=== PATIENT | female | born 1995 | race American Indian/Alaskan Native ===

== ENCOUNTER 2020-03-24 23:34 | Outpatient (CLI) | payer MEDICAID ==
[2020-03-25 01:31] VITALS: BP 128/79
== END 2020-03-25 01:49 | disposition home or self-care (01) ==
LOC: TRG 23:34 → APU 23:36 → TRG 03-25 01:49
PROVIDERS: ATTEND Obstetrics & Gynecology
DX: O26.852 Spotting complicating pregnancy, second trimester (principal); Z3A.27 27 weeks gestation of pregnancy
CPT/HCPCS: 59025

== ENCOUNTER 2020-06-11 04:10 | Outpatient (CLI) | payer MEDICAID ==
[2020-06-11 05:18] VITALS: BP 129/73
[2020-06-11] MEDS ORDERED: BICITRA ORAL LIQD 30ML PO NR (08:01)
[2020-06-11] MEDS ORDERED: FAMOTIDINE 20 MG/2 ML INJ IV ONE (08:01)
[2020-06-11] MEDS ORDERED: METOCLOPRAMIDE 10 MG/2 ML INJ IV NR (08:01)
--- NOTE | 2020-06-11 08:05 | History and Physical Report ---
History of Present Illness Date of examination: 06/11/20 Date of admission: 06/11/2020 Chief complaint: I'm here for my History of present illness: Pt is a 24 year old who presents for repeat . Past History - Obstetrical History : 3 Medications and Allergies Allergies Allergy/AdvReac Type Severity Reaction Status Date / Time No Known Allergies Allergy Unverified 03/25/20 00:10 - Vital Signs Vital signs: Vital Signs Pulse BP 98 H 131/80 06/11/20 04:35 06/11/20 04:35 Temp Pulse Resp BP Pulse Ox 98.4 F 96 H 129/73 98 06/11/20 04:55 06/11/20 05:17 06/11/20 05:17 06/11/20 05:17 Results All other labs normal.
[2020-06-11] MEDS ORDERED: LACTATED RINGERS 1,000 ML IV SCH (09:00)
[2020-06-11] MEDS ORDERED: OXYTOCIN 20 UNIT/1000ML DRIP 20 UNITS/1,000 ML BAG IV SCH (09:00)
[2020-06-11] MEDS ORDERED: ceFAZolin/Water 2 GM/20 ML 2 GM/20 ML SYRINGE IV NR (09:00)
== END 2020-06-11 05:25 | disposition home or self-care (01) ==
LOC: TRG 04:10
PROVIDERS: ATTEND Obstetrics & Gynecology
DX: O47.1 False labor at or after 37 completed weeks of gestation (principal); Z3A.38 38 weeks gestation of pregnancy
CPT/HCPCS: 59025

== ENCOUNTER 2020-07-22 14:10 | Emergency (ER) | payer MEDICAID ==
[2020-07-22 14:20] VITALS: BP 127/79
--- NOTE | 2020-07-22 15:01 | Emergency Department Report ---
Chief Complaint: Skin Rash Stated Complaint: SPOTS ON BREAST Time Seen by Provider: 07/22/20 14:41 - HPI History of Present Illness: Patient is a 24-year-old female presents emergency room with complaints of a rash to the breast that began this morning. She denies anything biting her. She denies any new soaps, lotions, detergents, foods, drinks, medications. She denies any facial swelling, difficulty breathing, sensation of throat closing. No past medical history. No allergies to medications. She is currently on her menstrual cycle. 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: TU Orozco Examination appears consistent with mild nonspecific urticaria Discussed supportive care and symptomatic treatment with patient Discussed [id number] medications Patient referred to primary care physician for reexamination Discussed in detail with patient very strict return precautions Medical screening examination performed and there is no threat to life or limb at this time - Exam Vital Signs: Vital Signs 07/22/20 14:19 Temperature 98 F Pulse Rate 92 H Respiratory 16 Rate Blood Pressure 127/79 [Right] O2 Sat by Pulse 99 Oximetry MSE screening note: Focused history and physical exam performed. Due to findings the following was ordered: ED Disposition for MSE Clinical Impression: Urticaria Disposition: MED SCREENING EXAM-LEFT Is pt being admited?: No Does the pt Need Aspirin: No Condition: Stable Instructions: Urticaria (ED) Additional Instructions: May take Benadryl [id number] as needed for itching but may cause drowsiness. May take Pepcid [id number] as needed for itching. May use a hydrocortisone cream [id number]. Follow-up with a primary care doctor for reexamination. Return to emergency room immediately for any new or worsening symptoms including but not limited to shortness of breath, facial swelling, difficulty swallowing, sensation of throat closing, worsening rash despite medications, etc. Referrals: EVELIA YARBROUGH MD [Staff Physician] - 2-3 Days [facility] [Provider Group] - 2-3 Days MUSA GRANT MD [Staff Physician] - 2-3 Days Time of Disposition: 15:00 Print Language: TURKMEN
== END 2020-07-22 15:08 | disposition left against medical advice (07) ==
LOC: ED 14:10
DX: L50.9 Urticaria, unspecified (principal); Z53.21 Procedure and treatment not carried out due to patient leaving prior to being seen by health care provider

== ENCOUNTER 2020-09-23 12:21 | Emergency (ER) | payer MEDICAID ==
[2020-09-23 12:59] VITALS: BP 128/76
--- NOTE | 2020-09-23 13:11 | Event Note ---
ED Screening Note ED Screening Note: n/v/d this morning mild cramping no fever no sick contacts no travel no recent abx no urinary symptoms pmhx asthma, bronchitis no allergies to meds LNMP: 08/26/2020 This initial assessment/diagnostic orders/clinical plan/treatment(s) is/are subject to change based on patients health status, clinical progression and re- assessment by fellow clinical providers in the ED. Further treatment and workup at subsequent clinical providers discretion. Patient/guardian urged not to elope from the ED as their condition may be serious if not clinically assessed and managed. Initial orders include: labs, ua
[2020-09-23 14:44] LABS: Basophils % (Auto) 0.2 % (0.0-1.8); Eosinophils # (Auto) 0.1 K/mm3 (0.0-0.4); Hematocrit 36.3 % (30.3-42.9); Hemoglobin 11.5 gm/dl (10.1-14.3); Lymphocytes % (Auto) 9.4 % (13.4-35.0); Mean Corpuscular HGB Conc 32 % (30-34); Mean Corpuscular Volume 73 fl (79-97); Monocytes # (Auto) 0.3 K/mm3 (0.0-0.8); Monocytes % (Auto) 3.1 % (0.0-7.3); Platelet Count 454 K/mm3 (140-440); Red Blood Count 4.97 M/mm3 (3.65-5.03); Red Cell Distribution Width 17.1 % (13.2-15.2)
--- NOTE | 2020-09-23 14:46 | Emergency Department Report ---
ED N/V/D HPI - General Chief complaint: Nausea/Vomiting/Diarrhea Stated complaint: BAD CRAMP IN STOMACH,VOMITING Time Seen by Provider: 09/23/20 13:09 Source: patient Mode of arrival: Ambulatory Limitations: No Limitations - History of Present Illness Initial comments: 25-year-old F Polish female presents emerged department complaining of having a emergence of vomiting and diarrhea on yesterday and some this morning when she thought was secondary to a child at her workplace and was sick and gave her the same symptoms. She states that her symptoms have now subsided and that she feels well but is worried about possibly being dehydrated. Reports no current fever, chills, sweats no chest pain or palpitation does have some vague abdominal aches which she states is secondary to her vomiting episodes. But there is no current nausea. Reports no chest pain or palpitations no rashes. No hemoptysis no hematemesis no hematochezia Description of Diarrhea: water Location: diffuse Radiation: none Severity: mild Pain Scale: 1 Quality: aching, dull Consistency: constant Improves with: none Worsens with: none Associated Symptoms: myalgias. denies: malaise, nausea/vomiting, shortness of breath, syncope, weakness - Related Data Previous Rx's Medication Instructions Recorded Last Taken Type Docusate Sodium [Colace] 100 mg PO BID PRN #60 capsule 06/12/20 Unknown Rx Ferrous Sulfate [Feosol 325 MG tab] 325 mg PO BID #60 tablet 06/12/20 Unknown Rx Ibuprofen [Motrin] 800 mg PO Q8HR PRN #40 tablet 06/12/20 Unknown Rx oxyCODONE /ACETAMINOPHEN [Percocet 2 tab PO Q6HR PRN #40 tablet 06/12/20 Unknown Rx 5/325] Ondansetron [Zofran Odt] 4 mg PO Q8HR #20 tab.rapdis 09/23/20 Unknown Rx Allergies Allergy/AdvReac Type Severity Reaction Status Date / Time No Known Allergies Allergy Unverified 03/25/20 00:10 ED Review of Systems ROS: Stated complaint: BAD CRAMP IN STOMACH,VOMITING Other details as noted in HPI Comment: All other systems reviewed and negative ED Past Medical Hx - Past Medical History Hx Hypertension: No Hx Congestive Heart Failure: No Hx Diabetes: No Hx Deep Vein Thrombosis: No Hx Renal Disease: No Hx Sickle Cell Disease: No Hx Seizures: No Hx Asthma: Yes Hx COPD: No Hx HIV: No - Surgical History Past Surgical History?: No Additional Surgical History: - Social History Smoking Status: Never Smoker - Medications Home Medications: Home Medications Medication Instructions Recorded Confirmed Last Taken Type Docusate Sodium [Colace] 100 mg PO BID PRN #60 capsule 06/12/20 Unknown Rx Ferrous Sulfate [Feosol 325 MG tab] 325 mg PO BID #60 tablet 06/12/20 Unknown Rx Ibuprofen [Motrin] 800 mg PO Q8HR PRN #40 tablet 06/12/20 Unknown Rx oxyCODONE /ACETAMINOPHEN [Percocet 2 tab PO Q6HR PRN #40 tablet 06/12/20 Unknown Rx 5/325] Ondansetron [Zofran Odt] 4 mg PO Q8HR #20 tab.rapdis 09/23/20 Unknown Rx ED Physical Exam - General Limitations: No Limitations General appearance: alert, in no apparent distress - Head Head exam: Present: atraumatic, normocephalic - Eye Eye exam: Present: normal appearance, PERRL, EOMI Pupils: Present: normal accommodation - ENT ENT exam: Present: normal exam, normal orophraynx, mucous membranes moist - Neck Neck exam: Present: normal inspection - Respiratory Respiratory exam: Present: normal lung sounds bilaterally. Absent: respiratory distress, wheezes, rales, chest wall tenderness, accessory muscle use - Cardiovascular Cardiovascular Exam: Present: regular rate, normal rhythm. Absent: systolic murmur, diastolic murmur, rubs, gallop - GI/Abdominal GI/Abdominal exam: Present: soft, tenderness, normal bowel sounds. Absent: distended, guarding, rebound, organomegaly, mass, bruit - Extremities Exam Extremities exam: Present: normal inspection - Back Exam Back exam: Present: normal inspection - Neurological Exam Neurological exam: Present: alert, oriented X3 - Psychiatric Psychiatric exam: Present: normal affect, normal mood - Skin Skin exam: Present: warm, dry, intact, normal color. Absent: rash ED Course Vital Signs 09/23/20 12:56 Temperature 98.1 F Pulse Rate 97 H Respiratory 18 Rate Blood Pressure 128/76 O2 Sat by Pulse 100 Oximetry ED Medical Decision Making - Lab Data Result diagrams: 09/23/20 13:53 09/23/20 13:53 - Medical Decision Making Patient presents to the emergency department with nausea, vomiting, diarrhea, differential diagnosis includes possible acute gastroenteritis. Abdominal examination without peritoneal signs. Currently patient is euvolemic without evidence of dehydration. No evidence of surgical abdomen or other acute medical emergency including bowel obstruction, viscus perforation, vascular catastrophe, appendicitis, cholecystitis at this time. Presentation not consistent with other acute emergent causes of vomiting and diarrhea at this time. No indication for abdominal imaging Plan supportive care, oral/IV rehydration, antiemetics and reassess Critical care attestation.: If time is entered above; I have spent that time in minutes in the direct care of this critically ill patient, excluding procedure time. ED Disposition Clinical Impression: Gastroenteritis Disposition: DC-01 TO HOME OR SELFCARE Is pt being admited?: No Does the pt Need Aspirin: No Condition: Stable Instructions: Gastroenteritis (ED), Acute Nausea and Vomiting (ED), Food Poisoning (ED) Prescriptions: Ondansetron [Zofran Odt] 4 mg PO Q8HR #20 tab.rapdis Referrals: KATHRINE BARKER MD [Primary Care Provider] - 3-5 Days [facility] [Provider Group] - 3-5 Days EVELIA YARBROUGH MD [Staff Physician] - 3-5 Days
[2020-09-23 14:47] LABS: Alanine Aminotransferase 10 units/L (7-56); Albumin 4.3 g/dL (3.9-5); Blood Urea Nitrogen 4 mg/dL (7-17); Calcium 9.7 mg/dL (8.4-10.2); Hemolysis Index 1
[2020-09-23 14:50] LABS: BUN/Creatinine Ratio 8
[2020-09-23 16:38] LABS: Bilirubin,Urine NEG (Negative); Blood,Urine NEG (Negative); Color,Urine Yellow (Yellow); Mucus,Urine FEW /HPF; Protein,Urine <15 mg/dL mg/dL (Negative); Urobilinogen,Urine < 2.0 mg/dL (<2.0)
== END 2020-09-23 16:46 | disposition home or self-care (01) ==
LOC: ED 12:21
DX: K52.9 Noninfective gastroenteritis and colitis, unspecified (principal); J45.909 Unspecified asthma, uncomplicated; Z98.890 Other specified postprocedural states; Z79.1 Long term (current) use of non-steroidal anti-inflammatories (NSAID); Z79.899 Other long term (current) drug therapy
CPT/HCPCS: 36415; 80053; 81001; 83690; 84703; 85025